=== PATIENT | female | born 1945 ===

== ENCOUNTER 2017-05-21 17:28 | Emergency (ER) | payer MEDICARE, OTHER ==
--- NOTE | 2017-05-21 19:18 | C.PDOC ---
History Of Present Illness 71 year old female presents to the ED for evaluation of headache, right arm and back pain. Patient reports she tripped and fell hitting her head on a nightstand early this morning. Patient also complains of right arm and upper back pain from trying to catch herself from falling. Patient denies LOC, neck pain, neck stiffness, blurry vision, nausea, vomit, dizziness, weakness, numbness. - HPI Time Seen by Provider: 05/21/17 19:06 Chief Complaint (Nursing): Trauma History Per: Patient History/Exam Limitations: no limitations Onset/Duration Of Symptoms: Days Location Of Injury: Right: Forearm, Head Recent travel outside of the [place]: No Additional History Per: Patient Past Medical History Reviewed: Historical Data, Nursing Documentation, Vital Signs Vital Signs: Last Vital Signs Temp 98.4 F 05/21/17 20:19 Pulse 64 05/21/17 20:19 Resp 20 05/21/17 20:19 BP 144/64 05/21/17 20:19 Pulse Ox 98 05/21/17 21:22 - Medical History PMH: Diabetes, Gastritis, HTN, Hypercholesterolemia Surgical History: Cholecystectomy Family History: States: Unknown Family Hx - Social History Hx Tobacco Use: No Hx Alcohol Use: No Hx Substance Use: No - Immunization History Hx Tetanus Toxoid Vaccination: No Hx Influenza Vaccination: Yes Hx Pneumococcal Vaccination: No Review Of Systems Constitutional: Negative for: Fever, Chills Eyes: Negative for: Vision Change Cardiovascular: Negative for: Chest Pain Gastrointestinal: Negative for: Nausea, Vomiting Musculoskeletal: Positive for: Arm Pain, Back Pain. Negative for: Neck Pain Skin: Negative for: Rash Neurological: Positive for: Headache Physical Exam - Physical Exam Appears: Non-toxic, No Acute Distress Skin: Normal Color, Warm, Dry Head: Normacephalic, No Laceration, Other (right forehead small hematoma) Eye(s): bilateral: Normal Inspection, PERRL, EOMI Nose: No Discharge Oral Mucosa: Moist Neck: Normal ROM, No Midline Cervical Tenderness, Supple Chest: Symmetrical Cardiovascular: Rhythm Regular, No Murmur Respiratory: Normal Breath Sounds, No Wheezing Back: No Vertebral Tenderness Extremity: Normal ROM, No Tenderness, Capillary Refill (< 2 seconds), No Deformity, No Swelling, Other (small ecchymotic lesion mid right forearm ) Pulses: Left Radial: Normal, Right Radial: Normal Neurological/Psych: Oriented x3, Normal Speech, Normal Motor, Normal Sensation Gait: Steady ED Course And Treatment O2 Sat by Pulse Oximetry: 98 (ON RA) Pulse Ox Interpretation: Normal - CT Scan/US Head CT Other Rad Studies (CT/US): Read By Radiologist, Radiology Report Reviewed CT/US Interpretation: EXAM: CT Head Without Intravenous Contrast. EXAM DATE/ TIME: 05/21/2017 7:16 PM. CLINICAL HISTORY: 71 years old, female; Injury or trauma; Fall; Initial encounter; Abrasion; Forehead; Additional info: Right frontal head injury. TECHNIQUE: Axial computed tomography images of the head/ brain without intravenous contrast. All CT scans at. this facility use one or more dose reduction techniques, viz.: automated exposure control; ma/kV. adjustment per patient size (including targeted exams where dose is matched to indication; i.e. head);. or iterative reconstruction technique. COMPARISON: No relevant prior studies available. FINDINGS: Brain: Moderate white matter disease and volume loss are identified. There is no acute infarct or. edema. No hemorrhage. Ventricles: Unremarkable. No ventriculomegaly. Bones/joints: Unremarkable. No acute fracture. Soft tissues: There is superficial soft tissue swelling along the frontal calvarium. Sinuses: There is a left maxillary sinus mucus retention cyst. Mastoid air cells: Unremarkable as visualized. No mastoid effusion. Other findings: This study is compromised by patient motion. IMPRESSION: There is no acute fracture or intracranial hemorrhage. Thank you for allowing us to participate in the care of your patient Medical Decision Making Medical Decision Making: Impression: trip and head injury Plan: * Tylenol * Head CT Progress: Patient complains of pain to upper back, no swelling or tenderness to area. Lidoderm patch applied. CT pending CT reviewed showing no intracranial abnormality. Discussed result with patient and gave copy of report. Patient remained alert and oriented in no distress. On re-eval, she reports feeling better. Patient is stable for discharge. Disposition Counseled Patient/Family Regarding: Studies Performed, Diagnosis, Need For Followup - Disposition Referrals: Mukund Carvajal MD [Medical Doctor] - Disposition: HOME/ ROUTINE Disposition Time: 21:30 Condition: GOOD Additional Instructions: Tu vicky CT fue normal. Puede delvin Tylenol para cualquier dolor que pueda tener y aplicar hielo en el simone. Alex un seguimiento con urban mdico. Instructions: Minor Head Injury (DC) Forms: [employer] (Kinyarwanda) Print Language: CITIZEN OF [place] - POA Present On Arrival: Falls Or Trauma - Clinical Impression Clinical Impression: Contusion of forehead, Upper back strain, Fall from slip, trip, or stumble - PA / PLANT MACHINIST / Resident Statement MD/DO has reviewed & agrees with the documentation as recorded. - Scribe Statement The provider has reviewed the documentation as recorded by the Scribe Brayan Leon All medical record entries made by the Scribwilfrido were at my direction and personally dictated by me. I have reviewed the chart and agree that the record accurately reflects my personal performance of the history, physical exam, medical decision making, and the department course for this patient. I have also personally directed, reviewed, and agree with the discharge instructions and disposition.
[2017-05-21 20:21] VITALS: BP 144/64; PULSE 64; RESP 20; TEMP 98.4
[2017-05-21] MEDS ORDERED: Lidocaine 5% Patch TD STA (20:41)
[2017-05-21] MEDS ORDERED: Lidocaine 5% Patch TD ONE (20:56)
[2017-05-21 21:22] VITALS: O2SAT 98
--- NOTE | 2017-05-22 06:44 | CT ---
PROCEDURE: CT HEAD WITHOUT CONTRAST. HISTORY: right frontal head injury COMPARISON: None available. TECHNIQUE: Axial computed tomography images were obtained through the head/brain without intravenous contrast. Radiation dose: Total exam DLP = 711 mGy-cm. This CT exam was performed using one or more of the following dose reduction techniques: Automated exposure control, adjustment of the mA and/or kV according to patient size, and/or use of iterative reconstruction technique. FINDINGS: HEMORRHAGE: No intracranial hemorrhage. BRAIN: Scattered focal lucencies in the subcortical and periventricular white matter suggestive for chronic microvascular ischemic change. Moderate volume loss. VENTRICLES: Unremarkable. No hydrocephalus. CALVARIUM: Unremarkable. PARANASAL SINUSES: Left maxillary sinus mucous retention cyst. MASTOID AIR CELLS: Unremarkable as visualized. No inflammatory changes. OTHER FINDINGS: Superficial soft tissue swelling along the frontal cranium. Study limited by motion artifact. IMPRESSION: No acute intracranial abnormality. If symptoms persists, consider MRI. These findings were preliminarily reported at 9:20 p.m. on 05/21/[address] Chrissy Barnes from [facility].
== END 2017-05-21 21:31 | disposition home or self-care (01) ==
LOC: C.ER 17:28
DX: S00.83XA Contusion of other part of head, initial encounter (principal); S29.012A Strain of muscle and tendon of back wall of thorax, initial encounter; W01.190A Fall on same level from slipping, tripping and stumbling with subsequent striking against furniture, initial encounter

== ENCOUNTER 2017-09-14 07:18 | Inpatient (IN) | payer MEDICARE, OTHER ==
[2017-09-13 17:39] VITALS: BMI 32.0
[2017-09-14] MEDS ORDERED: Verapamil 2 ML ONE (08:10)
[2017-09-14] MEDS ORDERED: Lidocaine 2% MPF (5 ml) Inj ONE (08:10)
[2017-09-14] MEDS ORDERED: Midazolam 2 MG/2 ML VIAL ONE (08:11)
[2017-09-14] MEDS ORDERED: Nitroglycerin 50mg in D5W 0 MG/0 ML BOTTLE IV ONE (08:11)
[2017-09-14] MEDS ORDERED: DiphenhydrAMINE 50 mg/ml Inj ONE (09:06)
[2017-09-14] MEDS ORDERED: Heparin25000 units/250ml 1/2NS 25,000 UNITS/250 ML BAG IV ONE (09:10)
[2017-09-14] MEDS ORDERED: Dextrose 5%/0.45% NS 1,000 ML IV SCH (09:30)
[2017-09-14] MEDS ORDERED: Nitroglycerin 50mg in D5W 50 MG/250 ML BOTTLE IV ONE (10:02)
--- NOTE | 2017-09-14 10:35 | CP.PCM.CON ---
History of Present Illness - History of Present Illness History of Present Illness: 71 F with Hx of DM2, Unstable angina, HTN and Hyperlipidemia s/p cath L Main: 80% LAD/Diags: Mild diffuse disease L Cx/OM: Large OM 1 99% stenosis RCA: Patent EF: 70% Critical L Main disease with unstbale angina Plan: Transfer for CABg IV Heparin with ACS protocol NO ASA: Aspirin allergy B blockers, Statins, ARBs DM management ROMIs and EKGs Admit patient to Dr. Fco Curry Past Patient History - Infectious Disease Hx of Infectious Diseases: None - Past Social History Smoking Status: Never Smoked - CARDIAC Hx Hypercholesterolemia: Yes Hx Hypertension: Yes - GASTROINTESTINAL Hx Gastritis: Yes - PSYCHIATRIC Hx Substance Use: No - SURGICAL HISTORY Hx Cholecystectomy: Yes - ANESTHESIA Hx Anesthesia: Yes Hx Anesthesia Reactions: No Hx Malignant Hyperthermia: No Meds Allergies/Adverse Reactions: Allergies Allergy/AdvReac Type Severity Reaction Status Date / Time aspirin Allergy Verified 05/21/17 19:13 Results - Labs Labs: Laboratory Results - last 24 hr 09/14/17 09/14/17 08:00 09:27 POC Glucose (mg/dL) 71 158 H
[2017-09-14] MEDS ORDERED: Heparin25000 units/250ml 1/2NS 25,000 UNITS/250 ML BAG IV PRN ×2 (11:54→12:00)
[2017-09-14] MEDS ORDERED: Sodium Chloride 0.45% 1,000 ML IV SCH (12:00)
[2017-09-14 13:04] VITALS: O2SAT 100
[2017-09-14 13:46] LABS: BASO # 0.1 K/uL (0.0-0.2); BASO % 0.4 % (0.0-2.0); HEMOGLOBIN 13.3 g/dL (11.0-16.0); LYMPH # 1.3 K/uL (1.0-4.3); LYMPH % 7.8 % (20.0-40.0); MEAN CELL VOLUME 91.6 fL (81.0-99.0); MEAN CORPUSCULAR HEMOGLOBIN 30.9 pg (27.0-31.0); MEAN CORPUSCULAR HGB CONC 33.7 g/dL (33.0-37.0); MEAN PLATELET VOLUME 9.8 fL (7.2-11.7); MONO # 0.1 K/uL (0.0-0.8); MONO % 0.5 % (0.0-10.0); NEUT # 15.7 K/uL (1.8-7.0); NEUT % 91.3 % (50.0-75.0); PLATELET COUNT 286 K/uL (130-400); RBC 4.31 Mil/uL (3.80-5.20); RED CELL DISTRIBUTION WIDTH 13.7 % (11.5-14.5); WHITE BLOOD COUNT 17.2 K/uL (4.8-10.8)
[2017-09-14 14:05] LABS: INR 1.2; PROTHROMBIN TIME 12.7 SECONDS (9.7-12.2)
[2017-09-14 14:14] LABS: CK-MB 3.63 ng/mL (0.0-3.38); TROPONIN I 0.112 ng/mL (0.00-0.120)
--- NOTE | 2017-09-14 14:23 | CP.PCM.CON ---
Past Patient History - Infectious Disease Hx of Infectious Diseases: None - Past Medical History & Family History Past Medical History?: Yes - Past Social History Smoking Status: Never Smoked - CARDIAC Hx Hypercholesterolemia: Yes Hx Hypertension: Yes - PULMONARY Hx Sleep Apnea: Yes - HEENT Hx Cataracts: Yes (SX for Cataracts) - MUSCULOSKELETAL/RHEUMATOLOGICAL Hx Falls: Yes - GASTROINTESTINAL Hx Gastritis: Yes - PSYCHIATRIC Hx Substance Use: No - SURGICAL HISTORY Hx Cholecystectomy: Yes - ANESTHESIA Hx Anesthesia: Yes Hx Anesthesia Reactions: No Hx Malignant Hyperthermia: No Meds Allergies/Adverse Reactions: Allergies Allergy/AdvReac Type Severity Reaction Status Date / Time aspirin Allergy Verified 05/21/17 19:13 - Medications Medications: Current Medications Famotidine (Pepcid) 20 mg PO BID DARLENE Sodium Chloride (Sodium Chloride 0.45%) 1,000 mls @ 70 mls/hr IV .[id number] DARLENE Stop: 09/15/17 00:00 Heparin Sodium/Sodium Chloride (Heparin 84018 Units/250ml 1/2 Normal Saline) 25 ,000 units in 250 mls @ 8.927 mls/hr IV .Q24H PRN; Protocol; 12 UNITS/KG/HR PRN Reason: ADJUST RATE PER PROTOCOL Insulin Human Regular (Novolin R) 0 unit SC ACHS DARLENE PRN Reason: Protocol Losartan Potassium (Cozaar) 25 mg PO DAILY DARLENE Metoprolol Tartrate (Lopressor) 12.5 mg PO BID DARLENE Rosuvastatin Calcium (Crestor) 40 mg PO HS DARLENE Sitagliptin Phosphate (Januvia) 100 mg PO DAILY [facility] Results - Vital Signs Recent Vital Signs: Last Vital Signs Temp Pulse 84 09/14/17 12:12 Resp BP Pulse Ox 100 09/14/17 12:12 - Labs Result Diagrams: 09/14/17 13:43 Labs: Laboratory Results - last 24 hr 09/14/17 09/14/17 09/14/17 08:00 09:27 13:43 WBC RBC Hgb Hct MCV MCH MCHC RDW Plt Count MPV Neut % (Auto) Lymph % (Auto) Osborne % (Auto) Eos % (Auto) Baso % (Auto) Neut # (Auto) Lymph # (Auto) Osborne # (Auto) Eos # (Auto) Baso # (Auto) PT 12.7 H INR 1.2 APTT 226 H* POC Glucose (mg/dL) 71 158 H Total Creatine Kinase CK-MB (Mass) Troponin I 09/14/17 09/14/17 13:43 13:43 WBC 17.2 H RBC 4.31 Hgb 13.3 Hct 39.5 MCV 91.6 MCH 30.9 MCHC 33.7 RDW 13.7 Plt Count 286 MPV 9.8 Neut % (Auto) 91.3 H Lymph % (Auto) 7.8 L Osborne % (Auto) 0.5 Eos % (Auto) 0.0 Baso % (Auto) 0.4 Neut # (Auto) 15.7 H Lymph # (Auto) 1.3 Osborne # (Auto) 0.1 Eos # (Auto) 0.0 Baso # (Auto) 0.1 PT INR APTT POC Glucose (mg/dL) Total Creatine Kinase 67 CK-MB (Mass) 3.63 H Troponin I 0.1120
[2017-09-14] MEDS: (Novolin R) Insulin Human Regular 100 units/ml vial SC SCH ×2 (14:24→17:07)
[2017-09-14 14:38] LABS: LYMPHOCYTE 6 % (20-40); MONOCYTE 1 % (0-10); NEUTROPHIL 93 % (50-75); PLATELET ESTIMATE NORMAL (NORMAL); TOTAL CELLS COUNTED 100
--- NOTE | 2017-09-14 17:08 | CP.PCM.HP ---
Past Patient History - Infectious Disease Hx of Infectious Diseases: None - Past Medical History & Family History Past Medical History?: Yes - Past Social History Smoking Status: Never Smoked - CARDIAC Hx Hypercholesterolemia: Yes Hx Hypertension: Yes - PULMONARY Hx Sleep Apnea: Yes - HEENT Hx Cataracts: Yes (SX for Cataracts) - MUSCULOSKELETAL/RHEUMATOLOGICAL Hx Falls: Yes - GASTROINTESTINAL Hx Gastritis: Yes - PSYCHIATRIC Hx Substance Use: No - SURGICAL HISTORY Hx Cholecystectomy: Yes - ANESTHESIA Hx Anesthesia: Yes Hx Anesthesia Reactions: No Hx Malignant Hyperthermia: No Meds Allergies/Adverse Reactions: Allergies Allergy/AdvReac Type Severity Reaction Status Date / Time aspirin Allergy Verified 05/21/17 19:13 Results - Vital Signs Recent Vital Signs: Last Vital Signs Temp Pulse 84 09/14/17 12:12 Resp BP Pulse Ox 100 09/14/17 12:12 - Labs Result Diagrams: 09/14/17 13:43 Labs: Laboratory Results - last 24 hr 09/14/17 09/14/17 09/14/17 08:00 09:27 13:43 WBC RBC Hgb Hct MCV MCH MCHC RDW Plt Count MPV Neut % (Auto) Lymph % (Auto) [place] % (Auto) Eos % (Auto) Baso % (Auto) Neut # (Auto) Lymph # (Auto) [place] # (Auto) Eos # (Auto) Baso # (Auto) Neutrophils % (Manual) Lymphocytes % (Manual) Monocytes % (Manual) Platelet Estimate RBC Morphology PT 12.7 H INR 1.2 APTT 226 H* POC Glucose (mg/dL) 71 158 H Total Creatine Kinase CK-MB (Mass) Troponin I 09/14/17 09/14/17 13:43 13:43 WBC 17.2 H RBC 4.31 Hgb 13.3 Hct 39.5 MCV 91.6 MCH 30.9 MCHC 33.7 RDW 13.7 Plt Count 286 MPV 9.8 Neut % (Auto) 91.3 H Lymph % (Auto) 7.8 L Kent[place] % (Auto) 0.5 Eos % (Auto) 0.0 Baso % (Auto) 0.4 Neut # (Auto) 15.7 H Lymph # (Auto) 1.3 Kenton # (Auto) 0.1 Eos # (Auto) 0.0 Baso # (Auto) 0.1 Neutrophils % (Manual) 93 H Lymphocytes % (Manual) 6 L Monocytes % (Manual) 1 Platelet Estimate Normal RBC Morphology Normal PT INR APTT POC Glucose (mg/dL) Total Creatine Kinase 67 CK-MB (Mass) 3.63 H Troponin I 0.1120
--- NOTE | 2017-09-14 18:28 | CARDCATH ---
Copied To: Moustapha Sterling MD Attending MD: Moustapha Sterling MD PROCEDURE DATE: 09/14/2017 REFERRING PHYSICIAN: Bin Cooper MD PERFORMING PHYSICIAN: Moustapha Sterling MD CLINICAL INDICATIONS: 1. Exertional chest pain. 2. Abnormal stress test. 3. Hypertension. 4. Hyperlipidemia 5. Diabetes. 6. Coronary artery disease. PROCEDURE: After informed consent, patient was prepped and draped in the usual sterile fashion. 2% Lidocaine was given in the right wrist for local anesthesia. Using micropuncture technique, a 6-Canadian sheath was introduced into right radial artery. A 6-Canadian JL4 diagnostic catheter crossed into left ventricle across the aortic valve. LV end-diastolic pressure was measured. Contrast injected and LV angiogram was done. Then, the catheter was pulled back. The gradient across the aortic valve was measured. 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 Contrast injected and right coronary angiogram was done. Then, the catheter was exchanged to 6-Canadian Linden catheter. Linden catheter engaged into the left main coronary artery. Contrast injected and left coronary angiogram was done. Patient started developing chest pain due to the cardiac cath. Patient required 2 mg of morphine sulfate and IV heparin for cessation of the chest pain. Patient became chest pain-free and hemodynamically stable. Radiological supervision and radiological interpretation of the coronary angiogram was performed. FINDINGS: 1. Ostial and proximal left main coronary artery has 80% eccentric stenosis. 2. LAD and diagonal branches are patent. 3. The left circumflex is patent. However, large obtuse marginal 1 has 99% stenosis. 4. Right coronary artery is dominant and patent. 5. LV ejection fraction is approximately 70%. No wall motion abnormalities noted. EDP is 21. No gradient across the aortic valve. IMPRESSION: 1. Severe left main coronary artery disease. 2. Severe obtuse marginal coronary artery disease. 3. Normal left ventricular systolic function. PLAN: Patient is started on IV heparin and patient will be transferred to intensive care unit for further management. Since the patient is allergic to aspirin, aspirin was not given in the cath lab manager. Moustapha Sterling MD [facility] # [id number]
[2017-09-14 19:33] VITALS: PULSE 89; TEMP 98.4
[2017-09-14 19:36] VITALS: BP 148/45; RESP 16
== END 2017-09-14 18:53 | disposition short-term general hospital (02) | DRG 287 ==
LOC: C.CATHLAB 07:18 → C.9S 09:18 → C.9I 10:46
PROVIDERS: ADMIT Internal Medicine Critical Care Medicine; ATTEND Internal Medicine Critical Care Medicine
PROC: B2161ZZ Fluoroscopy of Right and Left Heart using Low Osmolar Contrast (ICD-10-PCS; 2017-09-14)
PROC: B2111ZZ Fluoroscopy of Multiple Coronary Arteries using Low Osmolar Contrast (ICD-10-PCS; 2017-09-14)
PROC: 4A023N7 Measurement of Cardiac Sampling and Pressure, Left Heart, Percutaneous Approach (ICD-10-PCS; principal; 2017-09-14 08:00)
DX: I25.119 Atherosclerotic heart disease of native coronary artery with unspecified angina pectoris (principal); E11.9 Type 2 diabetes mellitus without complications; E78.00 Pure hypercholesterolemia, unspecified; E78.5 Hyperlipidemia, unspecified; G47.30 Sleep apnea, unspecified; I10 Essential (primary) hypertension

== ENCOUNTER 2018-05-15 20:15 | Emergency (ER) | payer OTHER ==
[2018-05-15 20:15] VITALS: BMI 32.0
[2018-05-15] MEDS ORDERED: Sodium Chloride 0.9% 1,000 ML IV ONE (20:39)
--- NOTE | 2018-05-15 20:39 | C.PDOC ---
History Of Present Illness The patient presents to the ED for evaluation of nausea and vomiting which began around 4 hours prior to arrival. Patient also reports decreased PO intake. She states her symptoms are of unknown etiology and denies fever, chills, abdominal pain and diarrhea at this time. Time Seen by Provider: 05/15/18 20:36 Chief Complaint (Nursing): GI Problem History Per: Patient History/Exam Limitations: no limitations Onset/Duration Of Symptoms: Hrs (4) Current Symptoms Are (Timing): Still Present Context: Other (unknown ) Severity: Mild Pain Scale Rating Of: 2 Radiation Of Pain To:: None Quality Of Discomfort: denies: "Pain" Associated Symptoms: Nausea, Vomiting. denies: Fever, Chills, Diarrhea Exacerbating Factors: None Alleviating Factors: None Last Bowel Movement: Today Recent travel outside of the [place]: No Additional History Per: Patient Abnormal Vaginal Bleeding: No Past Medical History Reviewed: Historical Data, Nursing Documentation, Vital Signs Vital Signs: Last Vital Signs Temp 98.2 F 05/15/18 20:36 Pulse 73 05/15/18 20:29 Resp 16 05/15/18 20:29 BP 127/38 L 05/15/18 20:29 Pulse Ox 93 L 05/15/18 20:29 - Medical History PMH: Diabetes, Gastritis, HTN, Hypercholesterolemia, Sleep Apnea Surgical History: Cholecystectomy - [facility] Procedures FLUOROSCOPY OF MULT COR ART USING L OSM CONTRAST (09/14/17) FLUOROSCOPY OF RIGHT AND LEFT HEART USING L OSM CONTRAST (09/14/17) MEASURE OF CARDIAC SAMPL & PRESSURE, L HEART, PERC APPROACH (09/14/17) Family History: States: Unknown Family Hx - Social History Hx Tobacco Use: No Hx Alcohol Use: No Hx Substance Use: No - Immunization History Hx Tetanus Toxoid Vaccination: No Hx Influenza Vaccination: No Hx Pneumococcal Vaccination: No Review Of Systems Constitutional: Positive for: Other (decreased PO intake ). Negative for: Fever, Chills Cardiovascular: Negative for: Chest Pain, Palpitations Respiratory: Negative for: Cough, Shortness of Breath Gastrointestinal: Positive for: Nausea, Vomiting. Negative for: Abdominal Pain, Diarrhea, Constipation Genitourinary: Negative for: Dysuria, Frequency, Hematuria Musculoskeletal: Negative for: Back Pain Skin: Negative for: Rash, Lesions, Jaundice, Bruising Neurological: Negative for: Weakness, Numbness Physical Exam - Physical Exam Appears: Non-toxic, No Acute Distress Skin: Warm, Dry Head: Normacephalic Oral Mucosa: Moist Neck: Supple Chest: Symmetrical, No Deformity Cardiovascular: Rhythm Regular, No Murmur Respiratory: No Rales, No Rhonchi, No Wheezing Gastrointestinal/Abdominal: Soft, No Tenderness, Distention, No Guarding, No Rebound, Other (tympanic to percussion, well-healed midline surgical scar (cholecystectomy)) Extremity: Normal ROM, Capillary Refill (less than 2 seconds ) Neurological/Psych: Oriented x3 ED Course And Treatment - Laboratory Results Result Diagrams: 05/15/18 20:47 05/15/18 21:14 ECG: Interpreted By Me, Viewed By Me ECG Rhythm: Sinus Rhythm (69), Nonspecific Changes (lahb, nsstt changes) O2 Sat by Pulse Oximetry: 93 Pulse Ox Interpretation: Abnormal Progress Note: Bloodwork and urinalysis ordered. Protonix IVP, Zofran IVP, and IV Fluids given. Reevaluation Time: 01:10 Reassessment Condition: Improved Medical Decision Making Medical Decision Making: Upon provider reevaluation patient is feeling better, is medically stable, and requires no further treatment in the ED at this time. Patient will be discharged home with Rx for zofran. macrobid. Counseling was provided and all questions were answered regarding diagnosis and need for follow up withdr hurley. There is agreement to discharge plan. Return if symptoms persist or worsen. Disposition Counseled Patient/Family Regarding: Studies Performed, Diagnosis, Need For Followup, Rx Given - Disposition Referrals: Mukund Carvajal MD [Medical Doctor] - Disposition: HOME/ ROUTINE Disposition Time: 20:39 Condition: FAIR Additional Instructions: Please return if symptoms recur. May need a colonoscopy Prescriptions: Nitrofurantoin Macrocrystals [Macrobid] 1 cap PO BID #14 cap Ondansetron ODT [Zofran ODT] 1 odt PO BID PRN #6 odt PRN Reason: Nausea/Vomiting Instructions: Urinary Tract Infection, Adult (DC), Nausea and Vomiting, Adult (DC) Forms: [facility] (Persian) - Clinical Impression Clinical Impression: Abdominal pain, Nausea & vomiting, UTI (urinary tract infection) - Scribe Statement The provider has reviewed the documentation as recorded by the Scribe (Helen Beckman) Provider Attestation: All medical record entries made by the Scribe were at my direction and personally dictated by me. I have reviewed the chart and agree that the record accurately reflects my personal performance of the history, physical exam, [facility] decision making, and the department course for this patient. I have also personally directed, reviewed, and agree with the discharge instructions and disposition.
[2018-05-15 20:53] LABS: BASO # 0.2 K/uL (0.0-0.2); BASO % 1.3 % (0.0-2.0); EOS % 0.2 % (0.0-4.0); HEMOGLOBIN 13.5 g/dL (11.0-16.0); LYMPH % 16.7 % (20.0-40.0); MEAN CORPUSCULAR HEMOGLOBIN 30.8 pg (27.0-31.0); MEAN CORPUSCULAR HGB CONC 32.8 g/dL (33.0-37.0); MEAN PLATELET VOLUME 11.2 fL (7.2-11.7); MONO # 0.6 K/uL (0.0-0.8); MONO % 5.1 % (0.0-10.0); NEUT # 9.2 K/uL (1.8-7.0); NEUT % 76.7 % (50.0-75.0); NRBC % 0.1 % (0.0-2.0); RBC 4.37 Mil/uL (3.80-5.20); RED CELL DISTRIBUTION WIDTH 14.3 % (11.5-14.5)
[2018-05-15 21:02] LABS: INR 1.1; PROTHROMBIN TIME 12.5 SECONDS (9.7-12.2)
[2018-05-15 21:23] LABS: SQUAMOUS EPITHIAL 4 /hpf (0-5); URINE BACTERIA FEW (<OCC); URINE BILIRUBIN NEGATIVE (NEGATIVE); URINE BLOOD NEGATIVE (NEGATIVE); URINE CLARITY Hazy (Clear); URINE COLOR Yellow (YELLOW); URINE GLUCOSE (UA) NORMAL (Normal); URINE LEUKOCYTE ESTERASE 2+ Leu/uL (Negative); URINE PROTEIN NEGATIVE (NEGATIVE); URINE UROBILINOGEN NORMAL mg/dL (0.2-1.0)
[2018-05-15] MEDS ORDERED: cefTRIAXone IV 1 gm in Dextros 50 ML IVPB ONE (21:32)
[2018-05-15 21:35] LABS: ALB/GLOB RATIO 1.4 (1.0-2.1); ALBUMIN 4.2 g/dL (3.5-5.0); ALT/SGPT 21 U/L (9-52); AST/SGOT 23 U/L (14-36); BLOOD UREA NITROGEN 19 mg/dL (7-17); CALCIUM 10.7 mg/dl (8.6-10.4); GFR NON-AFRICAN AMERICAN 54; LIPASE 16 U/L (23-300)
[2018-05-16 01:26] VITALS: BP 131/65; PULSE 76; RESP 18; TEMP 98.1; O2SAT 99
--- NOTE | 2018-05-16 12:04 | CT ---
Date of service: 05/15/2018 PROCEDURE: CT Abdomen and Pelvis with contrast HISTORY: abd pain COMPARISON: None available. TECHNIQUE: Contrast dose: 100 mL Visipaque 320 IV Radiation dose: Total exam DLP = 785.46 mGy-cm. Axial images were obtained of the abdomen and pelvis following the administration of IV contrast. Delayed images were provided in order to assess the collecting system. This CT exam was performed using one or more of the following dose reduction techniques: Automated exposure control, adjustment of the mA and/or kV according to patient size, and/or use of iterative reconstruction technique. FINDINGS: LOWER THORAX: Mild basilar atelectasis. No visible pleural effusion or pneumothorax. Partially imaged cardiomegaly. Small hiatal hernia/distal esophageal wall thickening. LIVER: Unremarkable. GALLBLADDER AND BILE DUCTS: Cholecystectomy. PANCREAS: Evidence of resection pancreatic body and tail. SPLEEN: The spleen is absent. ADRENALS: Unremarkable. KIDNEYS AND URETERS: The kidneys enhance symmetrically. No hydronephrosis or obstructing calculus identified. Bilateral cortical thinning. Bilateral parapelvic cysts. VASCULATURE: No aortic aneurysm. Dense atherosclerotic calcifications of the aorta and branches. BOWEL: Stomach is nondistended. Lack of oral contrast limits evaluation for bowel pathology. Bowel loops appear within normal limits of caliber without evidence of obstruction. Evidence of circumferential narrowing versus stricture of the rectosigmoid colon, possibly related to contraction versus neoplasm. Correlate clinically. Suggest further evaluation with colonoscopy if indicated. Proximal constipation evident. Bowel anastomotic suture material noted within the left upper quadrant. APPENDIX: The appendix appears within normal limits of caliber. No secondary signs of acute appendicitis. PERITONEUM: No significant free fluid. No definite free air. LYMPH NODES: No bulky adenopathy identified. BLADDER: Unremarkable. REPRODUCTIVE: Unremarkable. BONES: Degenerative changes. OTHER FINDINGS: Small fat containing umbilical hernia. IMPRESSION: The spleen is absent. Cholecystectomy. Evidence of pancreatic body and pancreatic tail resection. Correlate with surgical history. Bilateral parapelvic cysts. Bilateral renal cortical thinning. Evidence of circumferential narrowing versus stricture of the rectosigmoid colon, possibly related to contraction versus neoplasm. Correlate clinically. Suggest further evaluation with colonoscopy if indicated. Proximal constipation evident. Bowel anastomotic suture material noted within the left upper quadrant. Partially imaged cardiomegaly. Small hiatal hernia/distal esophageal wall thickening. Additional findings as above. Preliminary impression was provided by [employer]
--- NOTE | 2018-05-19 20:04 | CARD ---
APPROVED REPORT Date of service: 05/15/2018 EKG Measurement Heart [id number] <Conclusion> Normal sinus rhythm Left anterior fascicular block Anterior infarct, age undetermined Abnormal ECG
== END 2018-05-16 01:26 | disposition home or self-care (01) ==
LOC: C.ER 20:15
DX: N39.0 Urinary tract infection, site not specified (principal); R11.2 Nausea with vomiting, unspecified; R10.9 Unspecified abdominal pain; E11.9 Type 2 diabetes mellitus without complications; E78.00 Pure hypercholesterolemia, unspecified; I10 Essential (primary) hypertension
CPT/HCPCS: 74177; 80053; 81001; 82948; 83690; 85025; 85610; 85730; 96374; 96375; 99285; C9113; J0696; J2405; J7030